=== PATIENT | female | born 1995 | race Caucasian/White ===

== ENCOUNTER 2017-08-13 12:38 | Day surgery (SDC) | payer OTHER ==
[2017-08-13] MEDS ORDERED: PROPOFOL 60 ML ×2 (14:11→15:16)
== END 2017-08-13 18:22 | disposition home or self-care (01) ==
LOC: GIL 12:38
DX: K64.8 Other hemorrhoids (principal); K64.4 Residual hemorrhoidal skin tags
CPT/HCPCS: 45378; 84703; 88305